=== PATIENT | female | born 1930 | race Caucasian/White ===

== ENCOUNTER 2016-04-02 06:46 | Inpatient (IN) | payer OTHER, MEDICARE ==
[~2016-04-02] VITALS: Ht 172.7 cm; Wt 92.9 kg
[~2016-04-02 06:46] MED LIST: ACETAMINOPHN-T1 EACH PO; BEANO1 TABLET PO; CEFTIN500 MG PO; CEPHALEXIN500 M2 PO; CITRACAL W/V1 TABLE1 PO; CITRACAL W/V1 TABLET PO; CITRATE OF MAG296 ML PO; COLACE100 MG PO; COUMADIN,JANTOVE5 MG PO; COUMADIN1 MG PO; COUMADIN4 MG; COUMADIN5 MG PO; CYANOCOBALAM1000 MCG PO; Coumadin,Jantoven PO; ENDOCET 5-3251 EACH PO; FLEXERIL10 MG PO; FLORASTOR250 MG PO; FLUORITAB0.5 MG PO; FONDAPARIN7.5 MG/0.6 SC; FOSAMAX70 MG PO; KEFLEX500 MG PO; KLOR-CON M2020 MEQ PO; Keflex PO; LASIX40 MG PO; Lasix PO; Levaquin PO; METAMUCIL POWD798 GM PO; METAMUCIL1 EACH PO; MIRALAX17 GM PO; Miralax, Glycolax PO; NAPROSYN500 MG PO; NORCO 5/3251 TABLET PO; OMEGA 3 1,0001 EACH PO; OMEPRAZOLE20 M2 PO; OMEPRAZOLE40 M1 PO; OSTEO-BIFLE1 CAPSULE PO; PERCOCET 5-3251 EACH PO; PERCOCET 5/31 TABLET PO; PREDNISONE20 MG PO; PRILOSEC OTC20 MG PO; PRILOSEC20 MG PO; Percocet 5/325,Endoc PO; PriLOSEC PO; REQUIP0.5 MG PO; REQUIP1 MG PO; Requip PO; Revatio PO; SALONPAS LARGE1 EACH TD; SALONPAS PATCH1 EAC1 TD; SODIUM FLUORIDE PO; SPIRIVA1 INHALATI IH; TYLENOL ARTHRI650 MG PO; ULTRAM50 MG PO; Ultram PO; VALIUM5 MG PO; VENTOLIN HFA18 GM IH; VENTOLIN17 GM IH; VITAMIN B-12250 MCG PO; VITAMIN B-12500 MC4 PO; VITAMIN D1000 INTUN PO; VITAMIN D1000 UNIT PO; VITAMIN D2000 INTUN PO; VITAMIN D31000 UNI2 PO; Vitamin D PO; XARELTO15 MG PO; [UNRECOGNIZED DRUG - OTHER]; [UNRECOGNIZED DRUG - OTHER] MISC; [UNRECOGNIZED DRUG - OTHER] PO; [UNRECOGNIZED DRUG - OTHER] PO; [UNRECOGNIZED DRUG - OTHER] PO; predniSONE PO
[2016-04-02] MEDS ORDERED: PRILOSEC OTC20 MG BC (07:22)
[2016-04-02 07:32] VITALS: BP 133/63
[2016-04-02 07:46] LABS: PROTHROMBIN TIME 10.5 (9.2-11.2)
[2016-04-02] MEDS ORDERED: PERCOCET 5/31 TABLET PO (12:49)
[2016-04-02 20:43] VITALS: BP 153/67
[2016-04-02 23:14] VITALS: BP 156/58
[2016-04-03 04:05] VITALS: BP 140/64
[2016-04-03 08:05] VITALS: BP 135/65
[2016-04-03 11:33] LABS: INTER. NORMALIZED RATIO 1.1; PROTHROMBIN TIME 11.3 (9.2-11.2)
[2016-04-03 11:52] VITALS: BP 142/65
[2016-04-03 16:48] VITALS: BP 164/73
[2016-04-03 19:44] VITALS: BP 156/70
[2016-04-03 23:47] VITALS: BP 148/73
[2016-04-04 03:29] VITALS: BP 139/75
[2016-04-04 07:25] LABS: MCH 26.1 PG (29.0-34.0); MCHC 30.3 G/DL (30.0-36.0); MCV 86.2 FL (83-99); MEAN PLAT.VOLUME 9.5 uM^3 (9.5-12.4); PLATELET COUNT 135 K/uL (156-360); RBC DIS.WIDTH-CV 15.9 % (11.8-14.6); RBC DIS.WIDTH-SD 50.1 % (39-53); RED BLOOD COUNT 4.29 M/uL (3.80-5.20); WHITE BLOOD COUNT 5.2 K/uL (4.1-10.2)
[2016-04-04 07:30] LABS: INTER. NORMALIZED RATIO 1.1; PROTHROMBIN TIME 11.4 (9.2-11.2)
[2016-04-04 07:41] VITALS: BP 144/67
[2016-04-04 07:50] LABS: ANION GAP 9 MEQ/L (2-14); CHLORIDE 103 MEQ/L (99-109); GFR ESTIMATE (CALCULATED) > 59 mL/min/; GLUCOSE 97 mg/dL (70-99); POTASSIUM 3.7 MEQ/L (3.7-5.4); SAMPLE HEMOLYSIS CHECK 0; SAMPLE ICTERIC CHECK 0; SAMPLE LIPEMIA CHECK 0; SODIUM 138 MEQ/L (136-147); UREA NITROGEN (BUN) 9 mg/dL (9-23)
[2016-04-04 14:03] VITALS: BP 116/64
[2016-04-04 16:40] VITALS: BP 133/56
[2016-04-04 19:05] VITALS: BP 151/68
[2016-04-05 00:03] VITALS: BP 139/62
[2016-04-05 04:18] VITALS: BP 147/65
[2016-04-05 07:03] LABS: EOSINOPHIL (%) 4.4 % (0-5); EOSINOPHIL COUNT 0.2 K/uL (0-0.3); HEMATOCRIT 34.1 % (36.0-46.0); IMMATURE GRANULOCYTE (%) 0.2 % (0.0-0.7); LYMPHOCYTE COUNT 0.9 K/uL (1.0-2.8); MCH 26.4 PG (29.0-34.0); MCHC 30.8 G/DL (30.0-36.0); MCV 85.7 FL (83-99); MEAN PLAT.VOLUME 9.3 uM^3 (9.5-12.4); MONOCYTE (%) 13.3 % (3-12); MONOCYTE COUNT 0.6 K/uL (0-0.8); NEUTROPHIL (%) 62.5 % (45-76); PLATELET COUNT 128 K/uL (156-360); RBC DIS.WIDTH-CV 15.4 % (11.8-14.6); RED BLOOD COUNT 3.98 M/uL (3.80-5.20); WHITE BLOOD COUNT 4.8 K/uL (4.1-10.2)
[2016-04-05 07:10] LABS: INTER. NORMALIZED RATIO 1.2; PROTHROMBIN TIME 12.6 (9.2-11.2)
[2016-04-05 07:27] LABS: ANION GAP 7 MEQ/L (2-14); CHLORIDE 104 MEQ/L (99-109); GFR ESTIMATE (CALCULATED) > 59 mL/min/; GLUCOSE 95 mg/dL (70-99); MAGNESIUM 1.7 mg/dl (1.3-2.7); POTASSIUM 3.4 MEQ/L (3.7-5.4); SAMPLE HEMOLYSIS CHECK 0; SAMPLE ICTERIC CHECK 0; SAMPLE LIPEMIA CHECK 0; SODIUM 138 MEQ/L (136-147); UREA NITROGEN (BUN) 10 mg/dL (9-23)
[2016-04-05 08:00] VITALS: BP 140/65
[2016-04-05 12:00] VITALS: BP 121/56
[2016-04-05 16:00] VITALS: BP 123/58
[2016-04-05 19:20] VITALS: BP 119/57
[2016-04-06] VITALS: BP 143/65
[2016-04-06 03:05] VITALS: BP 143/61
[2016-04-06 07:08] LABS: HEMATOCRIT 35.4 % (36.0-46.0); MCH 25.7 PG (29.0-34.0); MCHC 30.5 G/DL (30.0-36.0); MCV 84.3 FL (83-99); MEAN PLAT.VOLUME 9.3 uM^3 (9.5-12.4); PLATELET COUNT 150 K/uL (156-360); RBC DIS.WIDTH-CV 15.4 % (11.8-14.6); RBC DIS.WIDTH-SD 47.3 % (39-53); WHITE BLOOD COUNT 4.5 K/uL (4.1-10.2)
[2016-04-06 07:29] LABS: INTER. NORMALIZED RATIO 1.5
[2016-04-06 07:34] LABS: ANION GAP 8 MEQ/L (2-14); CHLORIDE 104 MEQ/L (99-109); GFR ESTIMATE (CALCULATED) > 59 mL/min/; GLUCOSE 118 mg/dL (70-99); POTASSIUM 3.8 MEQ/L (3.7-5.4); SAMPLE HEMOLYSIS CHECK 0; SAMPLE ICTERIC CHECK 0; SAMPLE LIPEMIA CHECK 0; SODIUM 138 MEQ/L (136-147); UREA NITROGEN (BUN) 7 mg/dL (9-23)
[2016-04-06 08:00] VITALS: BP 150/69
[2016-04-06 12:00] VITALS: BP 133/60
[2016-04-06 16:00] VITALS: BP 175/72
[2016-04-06 20:01] VITALS: BP 131/60
[2016-04-07 00:10] VITALS: BP 175/77
[2016-04-07 03:48] VITALS: BP 172/70
[2016-04-07 07:50] VITALS: BP 131/60
[2016-04-07 07:50] LABS: INTER. NORMALIZED RATIO 1.9; PROTHROMBIN TIME 20.1 (9.2-11.2)
[2016-04-07 11:37] VITALS: BP 106/55
[2016-04-07 15:43] VITALS: BP 124/56
[2016-04-07 19:01] VITALS: BP 123/60
[2016-04-08] VITALS: BP 150/67
[2016-04-08 04:17] VITALS: BP 146/64
[2016-04-08 07:00] VITALS: BP 128/64
[2016-04-08 07:14] LABS: INTER. NORMALIZED RATIO 1.8; PROTHROMBIN TIME 18.3 (9.2-11.2)
[2016-04-08 11:33] VITALS: BP 137/63
== END 2016-04-08 12:30 | DRG 354 ==
LOC: SDC 06:46 → 2SOUTH 12:19 → SDC 15:41 → 2EAST 20:33
PROVIDERS: Physician Assistant; Surgery
DX: K43.2 Incisional hernia without obstruction or gangrene (principal); K91.3 Postprocedural intestinal obstruction; J44.9 Chronic obstructive pulmonary disease, unspecified; Z98.1 Arthrodesis status; G47.30 Sleep apnea, unspecified; M19.90 Unspecified osteoarthritis, unspecified site; K22.70 Barrett's esophagus without dysplasia; K58.9 Irritable bowel syndrome, unspecified; K44.9 Diaphragmatic hernia without obstruction or gangrene; Z90.49 Acquired absence of other specified parts of digestive tract; Z79.01 Long term (current) use of anticoagulants; Z85.3 Personal history of malignant neoplasm of breast; Z86.711 Personal history of pulmonary embolism
CPT/HCPCS: 36415; 71020; 74000; 80048; 83735; 84100; 85025; 85027; 85610; 86850; 86870; 86900; 86901; 86905; 86920; 93005; 94640; 94640 76; 94660; 94667; 94668; 94799; 97530 GO; 99202; C1781; G0378; J0131; J0330; J0690; J1170; J1885; J2405; J2710; J2765; J3010; J3480; J7120; S0020